=== PATIENT | male | born 1990 | race Caucasian/White ===

== ENCOUNTER 2017-04-13 20:04 | Emergency (ER) | payer SELFPAY ==
[~2017-04-13] VITALS: Ht 185.4 cm; Wt 72.6 kg
[~2017-04-13 20:04] MED LIST: AMOXICILLIN500 M2 PO; MOTRIN800 MG PO; NAPROSYN500 MG PO; NORCO 5-325 TA1 EACH PO; VICODIN 5/500 505 MG PO
[2017-04-13 20:10] VITALS: BP 151/68
[2017-04-13] MEDS ORDERED: AUGMENTIN 875875 MG PO (20:19)
[2017-04-13] MEDS ORDERED: FLONASE ALLERG9.9 ML NAS (20:19)
[2017-04-13] MEDS ORDERED: ALLEGRA-D 24 H1 EACH PO (20:19)
== END 2017-04-13 20:49 | disposition home or self-care (01) ==
LOC: ED 20:04
DX: J01.90 Acute sinusitis, unspecified (principal); F17.200 Nicotine dependence, unspecified, uncomplicated

== ENCOUNTER 2017-11-03 20:56 | Emergency (ER) | payer SELFPAY ==
[~2017-11-03] VITALS: Ht 182.8 cm; Wt 72.6 kg
[~2017-11-03 20:56] MED LIST changes: +ALLEGRA-D 24 H1 EACH PO; +AUGMENTIN 875875 MG PO; +FLONASE ALLERG9.9 ML NAS
[2017-11-03 20:59] VITALS: BP 124/68
== END 2017-11-03 22:13 | disposition home or self-care (01) ==
LOC: ED 20:56
DX: R51 Headache (principal); Z79.899 Other long term (current) drug therapy

== ENCOUNTER 2019-01-12 09:09 | Emergency (ER) | payer SELFPAY ==
[~2019-01-12] VITALS: Ht 185.4 cm; Wt 72.6 kg
[2019-01-12 09:10] VITALS: BP 118/67
[2019-01-12] MEDS ORDERED: NAPROSYN500 MG PO (10:39)
[2019-01-12] MEDS ORDERED: NORCO 5-325 TA1 EACH PO (10:39)
== END 2019-01-12 10:48 | disposition home or self-care (01) ==
LOC: ED 09:09
DX: S52.501A Unspecified fracture of the lower end of right radius, initial encounter for closed fracture (principal); S62.001A Unspecified fracture of navicular [scaphoid] bone of right wrist, initial encounter for closed fracture; W13.2XXA Fall from, out of or through roof, initial encounter; Y93.89 Activity, other specified; Y92.89 Other specified places as the place of occurrence of the external cause; Y99.8 Other external cause status

== ENCOUNTER 2021-11-13 19:49 | Emergency (ER) | payer SELFPAY ==
[2021-11-13 20:01] VITALS: BP 132/82
== END 2021-11-14 01:00 | disposition short-term general hospital (02) ==
LOC: ED 19:49
DX: S52.502B Unspecified fracture of the lower end of left radius, initial encounter for open fracture type I or II (principal); S52.602B Unspecified fracture of lower end of left ulna, initial encounter for open fracture type I or II; Y04.0XXA Assault by unarmed brawl or fight, initial encounter; Y93.89 Activity, other specified; Y92.89 Other specified places as the place of occurrence of the external cause; Y99.9 Unspecified external cause status

== ENCOUNTER 2023-11-30 18:26 | Emergency (ER) | payer BC ==
[~2023-11-30] VITALS: Ht 182.8 cm; Wt 81.6 kg
[2023-11-30 18:37] VITALS: BP 134/86
[2023-11-30] MEDS ORDERED: Ketorolac Tromethamine 15 MG/ML VIAL IV ONE (18:40)
[2023-11-30] MEDS ORDERED: SODIUM CHLORIDE 0.9% 1,000 ML IV ONE (18:40)
[2023-11-30] MEDS ORDERED: fentaNYL CITRATE 100 MCG/2 ML VIAL IV ONE (18:40)
[2023-11-30] MEDS ORDERED: Ondansetron Hydrochloride 4 MG/2 ML VIAL IV ONE (18:40)
[2023-11-30 20:10] LABS: BILIRUBIN Negative (Negative); BLOOD 3+ (Negative); CLARITY Turbid (Clear); COLOR Orange (Yellow); GLUCOSE 1+ (Negative); KETONE Trace (Negative); LEUKO ESTERASE Trace (Negative); NITRITE Negative (Negative); SPECIFIC GRAVITY >= 1.030 (1.001-1.030)
[2023-11-30 20:20] LABS: BACTERIA 3+; RBC TNTC rbc/hpf (0-2)
[2023-11-30] MEDS ORDERED: Ketorolac Tromethamine 10 MG TAB PO ONE (20:20)
[2023-11-30] MEDS ORDERED: Ondansetron 4 MG 2 TAB ED PACK PO SCH (20:20)
[2023-11-30] MEDS ORDERED: Ondansetron4 MG PO (20:24)
[2023-11-30] MEDS ORDERED: KETOROLAC10 MG PO (20:24)
== END 2023-11-30 21:02 | disposition home or self-care (01) ==
LOC: ED 18:26
PROVIDERS: Nurse Practitioner Family
DX: N20.0 Calculus of kidney (principal); R11.2 Nausea with vomiting, unspecified; N50.811 Right testicular pain; Z98.890 Other specified postprocedural states

== ENCOUNTER → 2023-12-06 | Outpatient (CLI) | payer BC ==
[~2023-12-06] MED LIST changes: +KETOROLAC10 MG PO; +Ondansetron4 MG PO
== END ==
LOC: US 10:00
PROVIDERS: ATTEND Urology
DX: N50.811 Right testicular pain (principal)

== ENCOUNTER → 2024-01-08 | Outpatient (CLI) | payer BC | END | disposition home or self-care (01) | LOC: US 15:00 | PROVIDERS: ATTEND Urology | DX: N20.0 Calculus of kidney (principal) ==